=== PATIENT | female | born 1950 | race Hispanic/Latino ===

== ENCOUNTER 2018-04-07 18:39 | Inpatient (IN) | payer MEDICARE ==
[2018-04-07 18:39] VITALS: BMI 19.8
[2018-04-07] MEDS ORDERED: Sodium Chloride 0.9% 1,000 ML IV ONE (21:32)
--- NOTE | 2018-04-07 21:32 | C.PDOC ---
History Of Present Illness 67 year old female with PMHx of lung CA presents to the ED c/o decreased appetite that has been worsening for the past 4 days. Patient states she did not had a bowel movement for the last 3 days. Patient has been feeling weak, freque nt falls over the last week. Patient denies fever, chills, CP, SOB, nausea, vomit, diarrhea, headache, dizziness. Time Seen by Provider: 04/07/18 21:31 Chief Complaint (Nursing): Medical Clearance History Per: Patient History/Exam Limitations: no limitations Onset/Duration Of Symptoms: Days Current Symptoms Are (Timing): Still Present Severity: Moderate Pain Scale Rating Of: 4 Reports Recently: Seen In ED, Treated By A Physician Recent travel outside of the [place]: No Additional History Per: Family Past Medical History Reviewed: Historical Data, Nursing Documentation, Vital Signs Vital Signs: Last Vital Signs Temp 100.1 F H 04/07/18 19:25 Pulse 116 H 04/07/18 19:25 Resp 20 04/07/18 19:25 BP 121/72 04/07/18 19:25 Pulse Ox 95 04/07/18 19:25 - Medical History PMH: Anxiety, Bipolar Disorder, Hyperthyroidism Denies: Chronic Kidney Disease Other PMH: Lung CA Surgical History: No Surg Hx - [facility] Procedures CATARAC PHACOEMULS/ASPIR (09/27/12) DESTRUCT EXT EAR LES NEC (02/17/00) INSERT LENS AT CATAR EXT (09/27/12) Family History: States: Unknown Family Hx - Social History Hx Alcohol Use: No Hx Substance Use: No Review Of Systems Constitutional: Positive for: Weakness. Negative for: Fever, Chills Eyes: Negative for: Redness ENT: Negative for: Throat Pain Cardiovascular: Negative for: Chest Pain Respiratory: Negative for: Cough, Shortness of Breath Gastrointestinal: Negative for: Nausea, Vomiting, Abdominal Pain Musculoskeletal: Negative for: Back Pain Skin: Negative for: Rash Neurological: Negative for: Weakness, Numbness Psych: Negative for: Anxiety Physical Exam - Physical Exam Appears: Non-toxic, Other (cachectic looking) Skin: Warm, Dry, Other (poor turgor) Head: Normacephalic Eye(s): bilateral: Normal Inspection Oral Mucosa: Dry Neck: Supple Chest: Symmetrical Cardiovascular: Rhythm Regular Respiratory: Decreased Breath Sounds, No Rales, Rhonchi, No Wheezing Gastrointestinal/Abdominal: Soft, No Tenderness, No Distention, No Guarding, No Rebound Back: Normal Inspection Extremity: No Tenderness Extremity: Bilateral: Atraumatic, Normal Color And Temperature, Normal ROM Pulses: Left Dorsalis Pedis: Normal, Right Dorsalis Pedis: Normal Neurological/Psych: Oriented x3 Gait: With Assistance ED Course And Treatment - Laboratory Results Result Diagrams: 04/07/18 21:35 04/07/18 21:35 ECG: Interpreted By Me, Viewed By Me ECG Rhythm: Nonspecific Changes O2 Sat by Pulse Oximetry: 95 (ON RA) Pulse Ox Interpretation: Normal - Radiology CXR: Interpreted by Me, Viewed By Me CXR Interpretation: Yes: Other (left lung mass). No: Infiltrates, Fracture, Cardiomegaly - CT Scan/US CT head Other Rad Studies (CT/US): Read By Radiologist, Radiology Report Reviewed CT/US Interpretation: EXAM: CT Head without Intravenous Contrast. CLINICAL HIS TORY: Unsteady gate, falls, hx of lung ca. TECHNIQUE: Axial computed tomography images of the head/brain without intravenous contrast. 0.00 mGy-cm. COMPARISON: None provided. FINDINGS: BRAIN. Chronic periventricular and subcortical microvascular disease is seen. VENTRICLES: There is generalized parenchymal atrophy noted as demonstrated by symmetrical dilatation of ventricles and sulci. ORBITS: The orbits are unremarkable. SINUSES AND MASTOIDS: The paranasal sinuses and mastoid air cells are clear. BONES: No fracture. SOFT TISSUES: Unremarkable. MISCELLANEOUS: No acute intracranial pathology. IMPRESSION: 1. There is generalized parenchymal atrophy noted as demonstrated by symmetrical dilatation of ventricles and sulci. 2. Chronic periventricular and subcortical microvascular disease is seen. 3. No acute intracranial pathology. . Electronically signed on Apr 07, 2018 11:02:46 PM EST by: Uriel Harding M.D., NISHANT Certified By ABR & CBCCT. Fellowship Trained MRI an d CT Specialist Progress Note: Plan: - CT head. - Labs. - CXR. - IV fluids. - UA. pt has known about the lung ca and chose to be treated. family is aware Disposition Discussed With : Amos Pendleton Comment: accepted the pt on his service and took over the care at 10:39 PM Doctor Will See Patient In The: Hospital Counseled Patient/Family Regarding: Studies Performed, Diagnosis - Disposition Disposition: HOSPITALIZED Disposition Time: 21:32 Condition: GUARDED - Clinical Impression Clinical Impression: Fall, Dehydration, Lung cancer - Scribe Statement The provider has reviewed the documentation as recorded by the Scribe Stevan Iglesias All medical record entries made by the Scribe were at my direction and personally dictated by me. I have reviewed the chart and agree that the record accurately reflects my personal performance of the history, physical exam, medical decision making, and the department course for this patient. I have also personally directed, reviewed, and agree with the discharge instructions and disposition.
[2018-04-07 21:44] LABS: BASO % 0.1 % (0.0-2.0); HEMOGLOBIN 11.5 g/dL (11.0-16.0); LYMPH # 0.2 K/uL (1.0-4.3); LYMPH % 1.6 % (20.0-40.0); MEAN CORPUSCULAR HEMOGLOBIN 29.4 pg (27.0-31.0); MEAN CORPUSCULAR HGB CONC 32.9 g/dL (33.0-37.0); MEAN PLATELET VOLUME 7.8 fL (7.2-11.7); NEUT # 10.2 K/uL (1.8-7.0); NEUT % 89.3 % (50.0-75.0); NRBC % 0.1 % (0.0-2.0); PLATELET COUNT 230 K/uL (130-400)
[2018-04-07 21:48] LABS: WHITE BLOOD COUNT 11.4 K/uL (4.8-10.8)
[2018-04-07 21:49] LABS: MEAN CELL VOLUME 89.4 fL (81.0-99.0)
[2018-04-07 21:53] LABS: INR 1.4
[2018-04-07 21:57] LABS: ALB/GLOB RATIO 1.1 (1.0-2.1); ALBUMIN 3.5 g/dL (3.5-5.0); CALCIUM 10.2 mg/dl (8.6-10.4)
[2018-04-07 22:31] LABS: ANISOCYTOSIS SLIGHT; BANDS 1 % (0-2); HYPOCHROMIC SLIGHT; LYMPHOCYTE 4 % (20-40); MONOCYTE 6 % (0-10); NEUTROPHIL 89 % (50-75); PLATELET ESTIMATE NORMAL (NORMAL); POIKILOCYTOSIS SLIGHT; TOTAL CELLS COUNTED 100
[2018-04-07] MEDS ORDERED: Dextrose 5%/0.45% NS 1,000 ML IV SCH (22:45)
[2018-04-07] MEDS ORDERED: Dextrose 5%/0.9% NS 1,000 ML IV ONE (22:52)
[2018-04-07] MEDS ORDERED: Potassium Chloride 20 mEq/15 ml LIQ UD PO STA (23:20)
[2018-04-07] MEDS ORDERED: Potassium Chloride 20 mEq ER Tab PO ONE (23:31)
--- NOTE | 2018-04-08 07:00 | HP ---
HISTORY OF PRESENT ILLNESS: This is a 67-year-old female who was brought to the office with history of confusion, frequent falls, not eating well, and was brought by family friend. She is known to have CA of the lung on the right side. She has been seen and followed up by the Dr. May, however, she had refused to do any further workup and did not want any treatment to be done regarding that. She has also hyperthyroidism. She has a history of depression under the care of Dr. Esteban. MEDICATIONS: At home include lithium carbonate 300 mg twice a day, methimazole 5 mg one a day. Medications at times include Phenergan with Codeine for cough, Protonix, and Proventil inhaler. ALLERGIES: DENIED. FAMILY HISTORY: Negative for premature coronary artery disease. PAST MEDICAL HISTORY: History of depression. Hyperthyroidism being followed with Dr. Shilpa Gutierrez. CA of lung, Dr. Larson had evaluated her. Also was seen by Dr. May. PERSONAL HISTORY: No EtOH abuse. No exercise. She is not . Heavy smoker, smokes more than pack a day for past many years close to 2 packs per day. REVIEW OF SYSTEMS: Generalized weakness is noted, frequent falls. No visual disturbances. No hearing loss. No throat irritation. No hemoptysis currently, but she has had a history of hemoptysis in the past. Chest pains more when she coughs. MUSCULOSKELETAL: Positive for generalized weakness. No joint pains. PSYCHIATRIC: Depression. GASTROINTESTINAL: Occasional abdominal pain, reflux. GENITOURINARY: Negative for hematuria or frequency. NEUROLOGICAL: Frequent falls, questionable syncope. PHYSICAL EXAMINATION: GENERAL: Shows elderly white female who is conscious, alert, and appears depressed with the decreased skin turgor. VITAL SIGNS: Blood pressure is 108/70, heart rate of 88, respiratory rate of 20, temperature of 97.8. She is 5 feet and weighs about 90 pounds. HEENT: Head: Normocephalic. Eyes: No pallor and no icterus. Mouth: No exudates. LUNGS: Decreased air entry on the right mid and lower lobe. HEART: PMI is normal. S1 and S2 is normal. No definite gallops. Soft mid systolic murmur in the mitral area grade 2/6. ABDOMEN: Soft. EXTREMITIES: No cyanosis, clubbing or edema. Distal pulses are intact. MUSCULOSKELETAL: No edema. NEUROLOGICAL: No focal sign. LABORATORY DATA: BUN is 33. Chest x-ray showed mild middle and lower lobe pneumonia mass. ASSESSMENT: A 67-year-old female with a history of depression, hyperthyroidism, carcinoma of the lung has presented with dehydration, confusion, and frequent falls. PLAN: To hydrate her. Pulmonary followup, Neuro followup. CT of the head. Thyroid functions. Psych followup. Amos Pendleton MD
--- NOTE | 2018-04-08 08:44 | RAD ---
HISTORY: lung ca COMPARISON: Chest CT without contrast performed 08/24/17, chest x-ray performed 08/16/17 TECHNIQUE: Chest, one view. FINDINGS: LUNGS: Ill-defined opacities re-identified within the left mid to lower medial lung zone prominently along the left heart border. Additional patchy opacity noted within the right hilar/infrahilar region. Small left pleural effusion. Biapical pleural thickening. No definite pneumothorax. Please note that chest x-ray has limited sensitivity for the detection of pulmonary masses. CARDIOVASCULAR: Cardiomegaly. No significant atherosclerotic calcification present. OSSEOUS STRUCTURES: Degenerative changes. VISUALIZED UPPER ABDOMEN: Unremarkable. OTHER FINDINGS: None. IMPRESSION: Persistent ill-defined opacity along the left mid to lower lung zone predominantly along the left heart border. Patchy opacities within the right hilar/infrahilar region. Small pleural effusion. Cardiomegaly.
[2018-04-08 09:38] LABS: T4 4.69 ug/dL (5.5-11.0)
[2018-04-08 09:55] LABS: T3 0.732 nmol/L (1.49-2.60)
[2018-04-08] MEDS: Enoxaparin 40 mg Syringe SC SCH (10:05)
[2018-04-08] MEDS: methIMAzole 5 MG TAB PO SCH (10:05)
[2018-04-08] MEDS: Dextrose 5%/0.9% NS 1,000 ML IV SCH ×2 (10:06→18:45)
--- NOTE | 2018-04-08 10:47 | CT ---
Date of service: 04/07/2018 PROCEDURE: CT HEAD WITHOUT CONTRAST. HISTORY: falls, hx of lung ca COMPARISON: None available. TECHNIQUE: Axial computed tomography images were obtained through the head/brain without intravenous contrast. Radiation dose: Total exam DLP = 1604.69 mGy-cm. This CT exam was performed using one or more of the following dose reduction techniques: Automated exposure control, adjustment of the mA and/or kV according to patient size, and/or use of iterative reconstruction technique. FINDINGS: HEMORRHAGE: No intracranial hemorrhage. BRAIN: Diffuse atrophy with prominence of the ventricles and sulci noted. No mass effect or edema. Intracranial atherosclerosis. Mild scattered white matter hypodensities, which are nonspecific, but often seen with chronic microvascular ischemic disease. Please note that MRI with diffusion imaging is more sensitive in the detection of acute ischemic event. VENTRICLES: No hydrocephalus. CALVARIUM: Unremarkable. PARANASAL SINUSES: Unremarkable as visualized. No significant inflammatory changes. MASTOID AIR CELLS: Unremarkable as visualized. No inflammatory changes. OTHER FINDINGS: None. IMPRESSION: Nonspecific white matter changes. Generalized atrophy. Preliminary impression was provided by [employer].
--- NOTE | 2018-04-08 15:18 | CP.PCM.PN ---
Subjective - Date & Time of Evaluation Date of Evaluation: 04/08/18 Time of Evaluation: 15:16 - Subjective Subjective: weak.ct head neg. Objective - Vital Signs/Intake and Output Vital Signs (last 24 hours): Temp Pulse Resp BP Pulse Ox 98.4 F 100 H 20 101/52 L 96 04/08/18 07:55 04/08/18 07:55 04/08/18 07:55 04/08/18 07:55 04/08/18 07:55 Intake and Output: 04/08/18 04/08/18 06:59 18:59 Intake Total 400 Balance 400 - Medications Medications: Current Medications Acetaminophen (Tylenol 325mg Tab) 650 mg PO Q6 PRN PRN Reason: Pain, moderate (4-7) Enoxaparin Sodium (Lovenox) 40 mg SC DAILY [facility] Last Admin: 04/08/18 10:05 Dose: 40 mg Dextrose/Sodium Chloride (Dextrose 5%/0.9% Ns 1000 Ml) 1,000 mls @ 100 mls/hr IV .Q10H [facility] Last Admin: 04/08/18 10:06 Dose: 100 mls/hr [place] Carbonate ([place] Carbonate 300mg) 300 mg PO BID [facility] Last Admin: 04/08/18 10:05 Dose: 300 mg Lorazepam (Ativan) 0.5 mg PO BID [facility] Last Admin: 04/08/18 10:05 Dose: 0.5 mg Methimazole (Tapazole) 5 mg PO DAILY [facility] Last Admin: 04/08/18 10:05 Dose: 5 mg - Labs Labs: 04/07/18 21:35 04/07/18 21:35 PT 15.0 SECONDS (9.7-12.2) H 04/07/18 21:35 INR 1.4 04/07/18 21:35 APTT 30 SECONDS (21-34) 04/07/18 21:35 - Constitutional Appears: No Acute Distress, Chronically Ill - Head Exam Head Exam: NORMOCEPHALIC - Eye Exam Eye Exam: Normal appearance - Neck Exam Neck Exam: Normal Inspection - Respiratory Exam Respiratory Exam: Decreased Breath Sounds - Cardiovascular Exam Cardiovascular Exam: REGULAR RHYTHM - GI/Abdominal Exam GI & Abdominal Exam: Soft - Extremities Exam Extremities Exam: absent: Pedal Edema - Neurological Exam Neurological Exam: Alert, Oriented x3 Assessment and Plan - Assessment and Plan (Free Text) Plan: dehtdration.ca lung.needsf/u dr sanchez.psych f/u.
--- NOTE | 2018-04-08 16:42 | CP.PCM.CON ---
History of Present Illness - History of Present Illness History of Present Illness: Reason for consultation: History of lung CA 67-year-old female with history of lung CA presented to emergency room with poor appetite, weakness and lethargy for the past few days. CAT scan of the head in the emergency room showed no metastatic lesion. Denies fever chills, denies chest pain, denies shortness of breath. Review of Systems - Review of Systems Systems not reviewed;Unavailable: Uncooperative Past Patient History - Past Medical History & Family History Past Medical History?: Yes - Past Social History Smoking Status: Current Some Days Smoker - CARDIAC Hx Cardiac Disorders: No - PULMONARY Hx Respiratory Disorders: Yes (lung mass) - NEUROLOGICAL Hx Neurological Disorder: No - HEENT Hx HEENT Problems: Yes (graves disease) Other/Comment: sjogrens disease lack of salvia and tears - RENAL Hx Chronic Kidney Disease: No - ENDOCRINE/METABOLIC Hx Hyperthyroidism: Yes - HEMATOLOGICAL/ONCOLOGICAL Hx Blood Disorders: No - INTEGUMENTARY Hx Dermatological Problems: No - MUSCULOSKELETAL/RHEUMATOLOGICAL Hx Falls: Yes - GASTROINTESTINAL Hx Gastrointestinal Disorders: No - GENITOURINARY/GYNECOLOGICAL Hx Genitourinary Disorders: Yes (ovarian cysts) - PSYCHIATRIC Hx Substance Use: No - SURGICAL HISTORY Hx Surgeries: Yes Other/Comment: laparoscopic ovarian cyst removal right ovary - ANESTHESIA Hx Anesthesia: Yes Hx Anesthesia Reactions: Yes (memory loss) Hx Malignant Hyperthermia: No Meds Allergies/Adverse Reactions: Allergies Allergy/AdvReac Type Severity Reaction Status Date / Time No Known Allergies Allergy Verified 04/07/18 19:38 - Medications Medications: Current Medications Acetaminophen (Tylenol 325mg Tab) 650 mg PO Q6 PRN PRN Reason: Pain, moderate (4-7) Enoxaparin Sodium (Lovenox) 40 mg SC DAILY [facility] Last Admin: 04/08/18 10:05 Dose: 40 mg Dextrose/Sodium Chloride (Dextrose 5%/0.9% Ns 1000 Ml) 1,000 mls @ 100 mls/hr IV .Q10H [facility] Last Admin: 04/08/18 10:06 Dose: 100 mls/hr [place] Carbonate ([place] Carbonate 300mg) 300 mg PO BID [facility] Last Admin: 04/08/18 10:05 Dose: 300 mg Lorazepam (Ativan) 0.5 mg PO BID [facility] Last Admin: 04/08/18 10:05 Dose: 0.5 mg Methimazole (Tapazole) 5 mg PO DAILY [facility] Last Admin: 04/08/18 10:05 Dose: 5 mg Physical Exam - Head Exam Head Exam: ATRAUMATIC, NORMOCEPHALIC - ENT Exam ENT Exam: Mucous Membranes Moist - Neck Exam Neck exam: Positive for: Normal Inspection - Respiratory Exam Respiratory Exam: Clear to Auscultation Bilateral - Cardiovascular Exam Cardiovascular Exam: REGULAR RHYTHM - GI/Abdominal Exam GI & Abdominal Exam: Normal Bowel Sounds Results - Vital Signs Recent Vital Signs: Last Vital Signs Temp 98.4 F 04/08/18 07:55 Pulse 100 H 04/08/18 07:55 Resp 20 04/08/18 07:55 BP 101/52 L 04/08/18 07:55 Pulse Ox 96 04/08/18 07:55 - Labs Result Diagrams: 04/09/18 11:17 04/09/18 11:17 Labs: Laboratory Results - last 24 hr 04/07/18 04/07/18 04/07/18 21:35 21:35 21:35 WBC 11.4 H D RBC 3.90 Hgb 11.5 Hct 34.8 MCV 89.4 D MCH 29.4 MCHC 32.9 L RDW 14.0 Plt Count 230 MPV 7.8 Neut % (Auto) 89.3 H Lymph % (Auto) 1.6 L [place] % (Auto) 9.0 Eos % (Auto) 0.0 Baso % (Auto) 0.1 Neut # (Auto) 10.2 H Lymph # (Auto) 0.2 L [place] # (Auto) 1.0 H Eos # (Auto) 0.0 Baso # (Auto) 0.0 Neutrophils % (Manual) 89 H Band Neutrophils % 1 Lymphocytes % (Manual) 4 L Monocytes % (Manual) 6 Platelet Estimate Normal Hypochromasia (manual) Slight Poikilocytosis (manual Slight Anisocytosis (manual) Slight PT 15.0 H INR 1.4 APTT 30 Sodium 135 Potassium 3.2 L Chloride 99 Carbon Dioxide 29 Anion Gap 10 BUN 33 H Creatinine 1.2 Est GFR ( Amer) 54 Est GFR (Non-Af Amer) 45 Random Glucose 112 H Calcium 10.2 Total Bilirubin 0.6 AST 18 ALT 17 Alkaline Phosphatase 121 Total Protein 6.6 Albumin 3.5 Globulin 3.1 Albumin/Globulin Ratio 1.1 Thyroxine (T4) Total T3 TSH 3rd Generation 04/08/18 08:55 WBC RBC Hgb Hct MCV MCH MCHC RDW Plt Count MPV Neut % (Auto) Lymph % (Auto) [place] % (Auto) Eos % (Auto) Baso % (Auto) Neut # (Auto) Lymph # (Auto) [place] # (Auto) Eos # (Auto) Baso # (Auto) Neutrophils % (Manual) Band Neutrophils % Lymphocytes % (Manual) Monocytes % (Manual) Platelet Estimate Hypochromasia (manual) Poikilocytosis (manual Anisocytosis (manual) PT INR APTT Sodium Potassium Chloride Carbon Dioxide Anion Gap BUN Creatinine Est GFR ( Amer) Est GFR (Non-Af Amer) Random Glucose Calcium Total Bilirubin AST ALT Alkaline Phosphatase Total Protein Albumin Globulin Albumin/Globulin Ratio Thyroxine (T4) 4.69 L Total T3 0.732 L TSH 3rd Generation 0.84 Assessment & Plan (1) Lung infiltrate Status: Acute Comment: Patchy opacity in the right hilar and infrahilar region/rule out pneumonia. Start antibiotics. Continue present treatment. Follow-up culture and sensitivity. CAT scan of the chest (2) Lung cancer Status: Acute
[2018-04-08] MEDS: Azithromycin 500 MG in Sodium Chloride 0.9% 250 ML IVPB SCH (18:30)
[2018-04-09] MEDS: Dextrose 5%/0.9% NS 1,000 ML IV SCH (04:02)
[2018-04-09] MEDS: methIMAzole 5 MG TAB PO SCH (10:12)
[2018-04-09] MEDS: Enoxaparin 40 mg Syringe SC SCH (10:13)
[2018-04-09 11:23] LABS: BASO % 0.2 % (0.0-2.0); HEMOGLOBIN 10.8 g/dL (11.0-16.0); LYMPH # 0.2 K/uL (1.0-4.3); LYMPH % 0.9 % (20.0-40.0); MEAN CELL VOLUME 91.3 fL (81.0-99.0); MEAN CORPUSCULAR HEMOGLOBIN 29.8 pg (27.0-31.0); MEAN CORPUSCULAR HGB CONC 32.6 g/dL (33.0-37.0); MEAN PLATELET VOLUME 7.2 fL (7.2-11.7); MONO # 0.8 K/uL (0.0-0.8); MONO % 4.5 % (0.0-10.0); NEUT # 16.6 K/uL (1.8-7.0); NEUT % 94.4 % (50.0-75.0); PLATELET COUNT 276 K/uL (130-400); RBC 3.62 Mil/uL (3.80-5.20); RED CELL DISTRIBUTION WIDTH 14.3 % (11.5-14.5)
[2018-04-09 11:24] LABS: WHITE BLOOD COUNT 17.6 K/uL (4.8-10.8)
[2018-04-09 11:36] LABS: ALBUMIN 2.9 g/dL (3.5-5.0); ALT/SGPT 18 U/L (9-52); AST/SGOT 14 U/L (14-36); BLOOD UREA NITROGEN 24 mg/dL (7-17); CALCIUM 10.2 mg/dl (8.6-10.4); GFR NON-AFRICAN AMERICAN > 60
[2018-04-09 11:42] LABS: ANISOCYTOSIS SLIGHT; BANDS 4 % (0-2); LYMPHOCYTE 1 % (20-40); MONOCYTE 4 % (0-10); NEUTROPHIL 91 % (50-75); PLATELET ESTIMATE NORMAL (NORMAL); TOTAL CELLS COUNTED 100
[2018-04-09 11:44] LABS: TOXIC GRANULATION PRESENT
--- NOTE | 2018-04-09 15:40 | CP.PCM.PN ---
Subjective - Date & Time of Evaluation Date of Evaluation: 04/09/18 Time of Evaluation: 13:00 - Subjective Subjective: Patient seen and examined Lethargic Poor appetite Afebrile Discussed at length with legal guardian Continue antibiotics CAT scan of chest Continue lithium Objective - Vital Signs/Intake and Output Vital Signs (last 24 hours): Temp Pulse Resp BP Pulse Ox 98.6 F 89 20 110/73 95 04/09/18 08:00 04/09/18 12:11 04/09/18 08:00 04/09/18 08:00 04/09/18 12:11 Intake and Output: 04/09/18 04/09/18 06:59 18:59 Intake Total 1130 Balance 1130 - Medications Medications: Current Medications Acetaminophen (Tylenol 325mg Tab) 650 mg PO Q6 PRN PRN Reason: Pain, moderate (4-7) Enoxaparin Sodium (Lovenox) 40 mg SC DAILY [facility] Last Admin: 04/09/18 10:13 Dose: 40 mg Dextrose/Sodium Chloride (Dextrose 5%/0.9% Ns 1000 Ml) 1,000 mls @ 100 mls/hr IV .Q10H [facility] Last Admin: 04/09/18 04:02 Dose: 100 mls/hr Azithromycin 500 mg/ Sodium (Chloride) 250 mls @ 250 mls/hr IVPB Q24H [facility]; Protocol Last Admin: 04/08/18 18:30 Dose: 250 mls/hr Ceftriaxone Sodium 1 gm/ (Sodium Chloride) 100 mls @ 100 mls/hr IVPB Q24H [facility]; Protocol Last Admin: 04/08/18 19:11 Dose: 100 mls/hr [place] Carbonate ([place] Carbonate 300mg) 300 mg PO BID [facility] Last Admin: 04/09/18 10:12 Dose: 300 mg Lorazepam (Ativan) 0.5 mg PO BID [facility] Last Admin: 04/09/18 10:12 Dose: 0.5 mg Methimazole (Tapazole) 5 mg PO DAILY [facility] Last Admin: 04/09/18 10:12 Dose: 5 mg - Labs Labs: 04/09/18 11:17 04/09/18 11:17 PT 15.0 SECONDS (9.7-12.2) H 04/07/18 21:35 INR 1.4 04/07/18 21:35 APTT 30 SECONDS (21-34) 04/07/18 21:35 Assessment and Plan (1) Lung infiltrate Status: Acute (2) Lung cancer Status: Acute
[2018-04-09] MEDS: Azithromycin 500 MG in Sodium Chloride 0.9% 250 ML IVPB SCH (17:17)
[2018-04-10] MEDS: Dextrose 5%/0.9% NS 1,000 ML IV SCH ×5 (00:20→21:15)
[2018-04-10 08:03] LABS: BASO % 0.1 % (0.0-2.0); LYMPH # 0.3 K/uL (1.0-4.3); LYMPH % 1.2 % (20.0-40.0); MEAN CELL VOLUME 92.1 fL (81.0-99.0); MEAN CORPUSCULAR HEMOGLOBIN 29.4 pg (27.0-31.0); MONO % 4.9 % (0.0-10.0); NEUT # 19.6 K/uL (1.8-7.0); NEUT % 93.8 % (50.0-75.0); PLATELET COUNT 348 K/uL (130-400); RBC 3.72 Mil/uL (3.80-5.20); RED CELL DISTRIBUTION WIDTH 14.7 % (11.5-14.5)
[2018-04-10 08:17] LABS: ALT/SGPT 22 U/L (9-52); AST/SGOT 12 U/L (14-36); BLOOD UREA NITROGEN 23 mg/dL (7-17); GFR NON-AFRICAN AMERICAN > 60
[2018-04-10 09:11] LABS: ANISOCYTOSIS SLIGHT; BANDS 2 % (0-2); HYPOCHROMIC SLIGHT; LYMPHOCYTE 1 % (20-40); MONOCYTE 4 % (0-10); NEUTROPHIL 92 % (50-75); PLATELET ESTIMATE NORMAL (NORMAL); POIKILOCYTOSIS SLIGHT; REACTIVE LYMPHOCYTES 1 % (0-0); TOTAL CELLS COUNTED 100
[2018-04-10] MEDS: methIMAzole 5 MG TAB PO SCH (09:53)
[2018-04-10] MEDS: Enoxaparin 40 mg Syringe SC SCH (10:03)
--- NOTE | 2018-04-10 11:26 | CT ---
Date of service: 04/10/2018 PROCEDURE: CT Chest without contrast HISTORY: h/o lung ca COMPARISON: None available. TECHNIQUE: Contiguous axial images were obtained through the chest without intravenous contrast enhancement. Sagittal and coronal reconstructions were performed. Radiation dose: Total exam DLP = 242.01 mGy-cm. This CT exam was performed using one or more of the following dose reduction techniques: Automated exposure control, adjustment of the mA and/or kV according to patient size, and/or use of iterative reconstruction technique. FINDINGS: LUNGS: Respiratory motion related artifacts limit the interpretation. Fibrotic changes are reiterated at the right apex with the aerated left lung clear. However, there is complete opacification of the left lower lobe likely a function of postobstructive atelectasis at the left hilum, either intrinsic or extrinsic. A defined mass is not clearly identified in this noncontrast examination. MEDIASTINUM: Trace calcific atherosclerotic changes are seen related to the thoracic aorta. No thoracic aortic aneurysm. Normal sized heart. Main pulmonary artery unremarkable. No vascular congestion. Possibility of left hilar adenopathy is not excluded though the remainder the mediastinum appears unremarkable as imaged in this unenhanced exam. PLEURA: Thoracic inlet again reflects prominent right thyroid lobe. A large left pleural effusion is identified, likely increased in volume which may exert some element of compression atelectasis at the left lower lobe (felt to primarily be atelectatic from postobstructive atelectasis etiology). No pneumothorax or right pleural effusion though left pleural effusion appears increased in the interval. BONES: Artifactual simulation of T8 compression fracture due to patient motion. Anterior sternum is artifact at the same level. No destructive bony lesion appreciable throughout. UPPER ABDOMEN: Grossly unremarkable. OTHER FINDINGS: None. IMPRESSION: Increased opacity at the left hemithorax is appreciated occupying the left lower lobe and pleural space suggesting interval progression of disease though no midline shift is appreciated at this time. Post structure atelectasis appears throughout the left lower lobe which is either intrinsic or extrinsic at the left mainstem bronchus, as per above.
[2018-04-10] MEDS ORDERED: Potassium Chloride 20 mEq/15 ml LIQ UD PO ONE (11:45)
--- NOTE | 2018-04-10 13:59 | CP.PCM.PN ---
Subjective - Date & Time of Evaluation Date of Evaluation: 04/10/18 Time of Evaluation: 13:56 - Subjective Subjective: very agitated,diss with pediatric care coordinator.request hospice. Objective - Vital Signs/Intake and Output Vital Signs (last 24 hours): Temp Pulse Resp BP Pulse Ox 98.6 F 104 H 20 100/55 L 97 04/10/18 08:00 04/10/18 08:00 04/10/18 08:00 04/10/18 08:00 04/10/18 08:00 Intake and Output: 04/10/18 04/10/18 06:59 18:59 Intake Total 1050 920 Balance 1050 920 - Medications Medications: Current Medications Acetaminophen (Tylenol 325mg Tab) 650 mg PO Q6 PRN PRN Reason: Pain, moderate (4-7) Enoxaparin Sodium (Lovenox) 40 mg SC DAILY [facility] Last Admin: 04/10/18 10:03 Dose: 40 mg Haloperidol (Haldol) 5 mg PO Q6H PRN PRN Reason: Agitation Last Admin: 04/10/18 09:53 Dose: 5 mg Dextrose/Sodium Chloride (Dextrose 5%/0.9% Ns 1000 Ml) 1,000 mls @ 100 mls/hr IV .Q10H [facility] Last Admin: 04/10/18 13:36 Dose: Not Given Azithromycin 500 mg/ Sodium (Chloride) 250 mls @ 250 mls/hr IVPB Q24H [facility]; Protocol Last Admin: 04/09/18 17:17 Dose: 250 mls/hr [place] Carbonate ([place] Carbonate 300mg) 300 mg PO BID [facility] Last Admin: 04/10/18 09:53 Dose: 300 mg Lorazepam (Ativan) 1 mg PO Q6H PRN PRN Reason: Anxiety Last Admin: 04/10/18 13:15 Dose: 1 mg Methimazole (Tapazole) 5 mg PO DAILY [facility] Last Admin: 04/10/18 09:53 Dose: 5 mg - Labs Labs: 04/10/18 07:53 04/10/18 07:53 PT 15.0 SECONDS (9.7-12.2) H 04/07/18 21:35 INR 1.4 04/07/18 21:35 APTT 30 SECONDS (21-34) 04/07/18 21:35 - Constitutional Appears: Agitated - Eye Exam Eye Exam: Normal appearance - Neck Exam Neck Exam: Normal Inspection - Respiratory Exam Respiratory Exam: Clear to Ausculation Bilateral - Cardiovascular Exam Cardiovascular Exam: REGULAR RHYTHM - Extremities Exam Extremities Exam: absent: Pedal Edema Assessment and Plan - Assessment and Plan (Free Text) Plan: ca lung.k is low.needs hospice.diss with caregiver who has power.diss with psych .
[2018-04-10] MEDS ORDERED: Potassium Chloride 20 mEq/15 ml LIQ UD PO STA (14:02)
--- NOTE | 2018-04-10 14:23 | CP.PCM.PN ---
<Young Gillespie - Last Filed: 04/10/18 14:15> Subjective - Date & Time of Evaluation Date of Evaluation: 04/10/18 Time of Evaluation: 12:00 - Subjective Subjective: Progress note for Pulmonology: Patient was seen and examined this morning at bedside. She is awake and alert but not oriented to place or time. Appears agitated and writhing around in bed. Non combative. Patient does respond to her name when her close friend calls out to her by the bedside. Upon further discussion, patient's friend (and P.O.A) states that today she appears cognitively worse then the past 2 days. She reports that patient has been told in the past that she had a "bad reaction" to haldol and that she should not take that medication. Friend also states that the patient has discussed not wanting any aggressive interventions to be done on her. Discussed option of thoracentesis but patient's POA refused. A&P 1. Pneumonia - CT chest reviewed, reveals complete opacification of the left lower lobe of the lung, likely attributed to post-obstructive atelectasis. This appears to be increased since her prior imaging. Currently no defined mass was clearly visualized. - WBC increased to 21.0 today (from 17.0) - Plan to switch antibiotics to Zosyn - Option for thoracentesis was discussed at length with patient's close friend. At this time, they do not want to perform diagnostic thoracentesis, as the patient has discussed her wish not to perform any aggressive interventions. 2. Acute delirium - Labs reviewed. Na+ increased to 157, K+ decreased to 3.2. Plan to continue IV fluids and replace K+ - Patient received Ativan 1 mg overnight as well as Haldol 5mg this morning for worsening agitation. Discussed with Dr. Thao that patient became more agitated after receiving medications and worsened her confusion. Psych will re-eval today and make new medication recommendations. 3. Lung Adenocarcinoma - Ongoing - Pending evaluation for hospice - POA states that patient does not want any heroic measures. Patient is pending evaluation by palliative care for end of life care/goals. Objective - Vital Signs/Intake and Output Vital Signs (last 24 hours): Temp Pulse Resp BP Pulse Ox 98.6 F 104 H 20 100/55 L 97 04/10/18 08:00 04/10/18 08:00 04/10/18 08:00 04/10/18 08:00 04/10/18 08:00 Intake and Output: 04/10/18 04/10/18 06:59 18:59 Intake Total 1050 920 Balance 1050 920 - Medications Medications: Current Medications Acetaminophen (Tylenol 325mg Tab) 650 mg PO Q6 PRN PRN Reason: Pain, moderate (4-7) Enoxaparin Sodium (Lovenox) 40 mg SC DAILY [facility] Last Admin: 04/10/18 10:03 Dose: 40 mg Haloperidol (Haldol) 5 mg PO Q6H PRN PRN Reason: Agitation Last Admin: 04/10/18 09:53 Dose: 5 mg Dextrose/Sodium Chloride (Dextrose 5%/0.9% Ns 1000 Ml) 1,000 mls @ 100 mls/hr IV .Q10H [facility] Last Admin: 04/10/18 13:36 Dose: Not Given Thorofare Carbonate (Thorofare Carbonate 300mg) 300 mg PO BID [facility] Last Admin: 04/10/18 09:53 Dose: 300 mg Lorazepam (Ativan) 1 mg PO Q6H PRN PRN Reason: Anxiety Last Admin: 04/10/18 13:15 Dose: 1 mg Methimazole (Tapazole) 5 mg PO DAILY [facility] Last Admin: 04/10/18 09:53 Dose: 5 mg - Labs Labs: 04/10/18 07:53 04/10/18 07:53 PT 15.0 SECONDS (9.7-12.2) H 04/07/18 21:35 INR 1.4 04/07/18 21:35 APTT 30 SECONDS (21-34) 04/07/18 21:35 Assessment and Plan (1) Lung cancer Status: Acute (2) Lung infiltrate Status: Acute <Wes May S - Last Filed: 04/10/18 18:09> Objective - Vital Signs/Intake and Output Vital Signs (last 24 hours): Temp Pulse Resp BP Pulse Ox 98.8 F 102 H 20 103/64 96 04/10/18 17:15 04/10/18 17:15 04/10/18 17:15 04/10/18 17:15 04/10/18 17:15 Intake and Output: 04/10/18 04/10/18 06:59 18:59 Intake Total 1050 920 Balance 1050 920 - Medications Medications: Current Medications Acetaminophen (Tylenol 325mg Tab) 650 mg PO Q6 PRN PRN Reason: Pain, moderate (4-7) Clonazepam (Klonopin) 0.5 mg PO BID [facility] Enoxaparin Sodium (Lovenox) 40 mg SC DAILY [facility] Last Admin: 04/10/18 10:03 Dose: 40 mg Haloperidol (Haldol) 5 mg PO Q6H PRN PRN Reason: Agitation Last Admin: 04/10/18 09:53 Dose: 5 mg Dextrose/Sodium Chloride (Dextrose 5%/0.9% Ns 1000 Ml) 1,000 mls @ 100 mls/hr IV .Q10H [facility] Last Admin: 04/10/18 13:36 Dose: Not Given Thorofare Carbonate (Thorofare Carbonate 300mg) 300 mg PO BID [facility] Last Admin: 04/10/18 09:53 Dose: 300 mg Lorazepam (Ativan) 0.5 mg PO Q6H PRN PRN Reason: Anxiety Last Admin: 04/10/18 13:20 Dose: 0.5 mg Methimazole (Tapazole) 5 mg PO DAILY [facility] Last Admin: 04/10/18 09:53 Dose: 5 mg Trazodone HCl (Desyrel) 50 mg PO HS [facility] - Labs Labs: 04/10/18 07:53 04/10/18 07:53 PT 15.0 SECONDS (9.7-12.2) H 04/07/18 21:35 INR 1.4 04/07/18 21:35 APTT 30 SECONDS (21-34) 04/07/18 21:35 Assessment and Plan (1) Lung infiltrate Status: Acute (2) Lung cancer Status: Acute Attending/Attestation - Attestation I have personally seen and examined this patient.: Yes I have fully participated in the care of the patient.: Yes I have reviewed all pertinent clinical information, including history, physical exam and plan: Yes Notes (Text): 04/10/18 18:07 Patient seen and examined Patient seen by psychiatry Possible sepsis Continue antibiotics Hospice evaluation
--- NOTE | 2018-04-10 14:44 | PCM.PSYCH ---
Initial Psychiatric Evaluation - Initial Psychiatric Evaluation Chief Complaint (in patient's own words): None She was sedated History of Present Illness and Precipitating Events: Consult was requested by medicine for her agitation Dr. Cardenas saw her but she was confused and did not cooperate Software Team Leader saw today and she was again confused but more sedated. Her legal guardian was with her, Jami, and she provided most of the history. Software Team Leader spoke to her attending dr ramirez She is a 67 y/o WF, single, no child, lives alone. Here for end-stage lung cancer She will move to hospice as she has been refusing treatment and dying. She had been seen by Keara Cain, and "only Chrisney" helped her chronic severe depression, her LG says. However, here she is mostly delirious than depressed. No suicide attempts Not clear about psych admissions She has been stable until last week on klonopin and lithium Medical: Cancer Current Medications: Active Medications Generic Name Dose Route Start Last Admin Trade Name Freq PRN Reason Stop Dose Admin Acetaminophen 650 mg 04/08/18 08:41 Tylenol 325mg Tab PO Q6 PRN Pain, moderate (4-7) Clonazepam 0.5 mg 04/10/18 18:00 Klonopin PO BID MY Enoxaparin Sodium 40 mg 04/08/18 10:00 04/10/18 10:03 Lovenox SC 40 mg DAILY [facility] Administration Haloperidol 5 mg 04/09/18 16:38 04/10/18 09:53 Haldol PO 5 mg Q6H PRN Administration Agitation Dextrose/Sodium Chloride 1,000 mls @ 100 mls/hr 04/08/18 08:45 04/10/18 13:36 Dextrose 5%/0.9% Ns 1000 Ml IV Not Given .Q10H MY Chrisney Carbonate 300 mg 04/08/18 10:00 04/10/18 09:53 Chrisney Carbonate 300mg PO 300 mg BID MY Administration Lorazepam 0.5 mg 04/10/18 15:00 Ativan PO Q6H PRN Anxiety Methimazole 5 mg 04/08/18 10:00 04/10/18 09:53 Tapazole PO 5 mg DAILY MY Administration Trazodone HCl 50 mg 04/10/18 22:00 Desyrel PO HS MY Past Psychiatric History - Past Psychiatric History Previous Treatment History: Intensive Outpatient Pertinent Medical Hx (Current Medical&Sleep Prob, Allergies): Allergies Allergy/AdvReac Type Severity Reaction Status Date / Time No Known Allergies Allergy Verified 04/07/18 19:38 LORazepam [Ativan] 0.5 mg PO BID 10/31/15 Chrisney Carbonate 300 mg PO BID 10/31/15 Methimazole 5 mg PO DAILY 10/31/15 Temazepam 15 mg PO HS 10/31/15 Review of Systems - Review of Systems Systems not reviewed;Unavailable: Altered Mental Status Mental Status Examination - Personal Presentation Personal Presentation: Looks older than stated age - Affect Affect: Flat - Motor Activity Motor Activity: Psychomotor Agitation - Reliability in Providing Information Reliability in Providing Information: Poor, due to cognitve impairment - Speech Speech: Disorganized - Mood Mood: Depressed - Formal Thought Process Formal Thought Process: Other - Cognitive Functions Orientation: Person (disoriented) Sensorium: Lethargic Attention/Concentration: Easily distracted Memory: Recent impaired, as evidence by: Inability to recall events of the day, Remote impaired as evidenced by: Inability to recall sig life events - Strength & Assets Inventory Strength & Assets Inventory: Family support (friend) DSM 5 DX - DSM 5 DSM 5 Diagnosis: Bipolar d/o - depressed (by history) Delirium due to medical issues (pneumonia) - Recommended/Plan of Treatment Treatment Recommendations and Plan of Treatment: prn ativan Klonopin 0.5 BID resumed She is already on Chrisney but level to be checked tomorrow - Hold IF kidney functions impaired Trazodone for insomnia and it helps agitation too Treat underlying condition for delirium Support and 1:1 Hold benzos if she remains confused after the underlying condition improves 33 min
--- NOTE | 2018-04-10 21:39 | CARD ---
APPROVED REPORT Date of service: 04/08/2018 EKG Measurement Heart [id number] <Conclusion> Sinus tachycardia Possible Left atrial enlargement Rightward axis T wave abnormality, consider anterior ischemia Abnormal ECG
[2018-04-11] MEDS: Dextrose 5%/0.9% NS 1,000 ML IV SCH ×2 (04:09→06:33)
[2018-04-11 06:54] LABS: BASO % 0.2 % (0.0-2.0); HEMOGLOBIN 11.2 g/dL (11.0-16.0); LYMPH # 0.3 K/uL (1.0-4.3); LYMPH % 1.6 % (20.0-40.0); MEAN CELL VOLUME 93.9 fL (81.0-99.0); MEAN CORPUSCULAR HEMOGLOBIN 29.3 pg (27.0-31.0); MEAN CORPUSCULAR HGB CONC 31.2 g/dL (33.0-37.0); MEAN PLATELET VOLUME 6.7 fL (7.2-11.7); MONO # 1.1 K/uL (0.0-0.8); MONO % 5.4 % (0.0-10.0); NEUT # 18.8 K/uL (1.8-7.0); NEUT % 92.8 % (50.0-75.0); PLATELET COUNT 312 K/uL (130-400); RBC 3.84 Mil/uL (3.80-5.20); RED CELL DISTRIBUTION WIDTH 15.6 % (11.5-14.5); WHITE BLOOD COUNT 20.3 K/uL (4.8-10.8)
[2018-04-11 07:02] LABS: ALB/GLOB RATIO 0.9 (1.0-2.1); ALBUMIN 2.9 g/dL (3.5-5.0); ALT/SGPT 14 U/L (9-52); AST/SGOT 12 U/L (14-36); BLOOD UREA NITROGEN 21 mg/dL (7-17); CALCIUM 10.9 mg/dl (8.6-10.4); GFR NON-AFRICAN AMERICAN 55
[2018-04-11 08:59] LABS: LYMPHOCYTE 1 % (20-40); MONOCYTE 2 % (0-10); NEUTROPHIL 97 % (50-75); PLATELET ESTIMATE NORMAL (NORMAL); TOTAL CELLS COUNTED 100
[2018-04-11] MEDS: methIMAzole 5 MG TAB PO SCH (10:23)
[2018-04-11] MEDS: Enoxaparin 40 mg Syringe SC SCH (10:23)
--- NOTE | 2018-04-11 11:57 | CP.PCM.CON ---
History of Present Illness - History of Present Illness History of Present Illness: Palliative consult requested by Doctor Keerthi for goals of care discussion Patient is a 67 yo female admitted from home with confusion, decreased appetite and multiple falls at home. 911 called by patient's friend Danny Salomon ( [phone]). Patient has known Hx of lung CA. Per record, patient has refused all management cancer related. On this admission CT chest confirmed lung cancer spreading now to left lobe as well. During this hospital stay patient's condition worsened due to elevated Na of 167, and patient become very confused, lethargic and this morning unresponsive to verbal/ tactile stimuli. Patient is hydrated via IV fluids and PO meds are held off due high risk of aspiration 2nd to lethargy. Palliative care was called to assist with goals of care. PMH: lung cancer, depression, on [place] at home BID Soc. Hx: single, lives alone, friend Ms. Delgado is a POA and decision maker Fam. Hx: unknown Review of Systems - Review of Systems All systems: reviewed and no additional remarkable complaints except Review of Systems: ROS unobtainable from patient due to lethargy. ROS obtained from nursing. per nursing, patient has been lethargic and unable to tolerate PO. Past Patient History - Past Medical History & Family History Past Medical History?: Yes - Past Social History Smoking Status: Current Some Days Smoker - CARDIAC Hx Cardiac Disorders: No - PULMONARY Hx Respiratory Disorders: Yes (lung mass) - NEUROLOGICAL Hx Neurological Disorder: No - HEENT Hx HEENT Problems: Yes (graves disease) Other/Comment: sjogrens disease lack of salvia and tears - RENAL Hx Chronic Kidney Disease: No - ENDOCRINE/METABOLIC Hx Hyperthyroidism: Yes - HEMATOLOGICAL/ONCOLOGICAL Hx Blood Disorders: No - INTEGUMENTARY Hx Dermatological Problems: No - MUSCULOSKELETAL/RHEUMATOLOGICAL Hx Falls: Yes - GASTROINTESTINAL Hx Gastrointestinal Disorders: No - GENITOURINARY/GYNECOLOGICAL Hx Genitourinary Disorders: Yes (ovarian cysts) - PSYCHIATRIC Hx Substance Use: No - SURGICAL HISTORY Hx Surgeries: Yes Other/Comment: laparoscopic ovarian cyst removal right ovary - ANESTHESIA Hx Anesthesia: Yes Hx Anesthesia Reactions: Yes (memory loss) Hx Malignant Hyperthermia: No Meds Allergies/Adverse Reactions: Allergies Allergy/AdvReac Type Severity Reaction Status Date / Time No Known Allergies Allergy Verified 04/07/18 19:38 - Medications Medications: Current Medications Acetaminophen (Tylenol 325mg Tab) 650 mg PO Q6 PRN PRN Reason: Pain, moderate (4-7) Clonazepam (Klonopin) 0.5 mg PO BID [facility] Last Admin: 04/11/18 10:23 Dose: 0.5 mg Enoxaparin Sodium (Lovenox) 40 mg SC DAILY [facility] Last Admin: 04/11/18 10:23 Dose: 40 mg Haloperidol (Haldol) 5 mg PO Q6H PRN PRN Reason: Agitation Last Admin: 04/10/18 09:53 Dose: 5 mg Dextrose (Dextrose 5% In Water 1000 Ml) 1,000 mls @ 100 mls/hr IV .Q10H [facility] Lorazepam (Ativan) 0.5 mg PO Q6H PRN PRN Reason: Anxiety Last Admin: 04/10/18 13:20 Dose: 0.5 mg Methimazole (Tapazole) 5 mg PO DAILY [facility] Last Admin: 04/11/18 10:23 Dose: 5 mg Trazodone HCl (Desyrel) 50 mg PO HS [facility] Last Admin: 04/10/18 21:59 Dose: 50 mg Physical Exam - Constitutional Appears: In Acute Distress, Chronically Ill - Head Exam Head Exam: ATRAUMATIC, NORMAL INSPECTION, NORMOCEPHALIC - Eye Exam Eye Exam: EOMI, Normal appearance, PERRL Pupil Exam: NORMAL ACCOMODATION, PERRL - ENT Exam ENT Exam: Mucous Membranes Dry Additional comments: Moth open, mouth breather, oral mucousa dry - Neck Exam Neck exam: Positive for: Normal Inspection - Respiratory Exam Respiratory Exam: Decreased Breath Sounds, NORMAL BREATHING PATTERN - Cardiovascular Exam Cardiovascular Exam: Tachycardia - GI/Abdominal Exam GI & Abdominal Exam: Normal Bowel Sounds, Soft - Rectal Exam Rectal Exam: Deferred - Extremities Exam Extremities exam: Positive for: normal inspection - Back Exam Back exam: NORMAL INSPECTION - Neurological Exam Neurological exam: Motor Sensory Deficit - Psychiatric Exam Psychiatric exam: Flat Affect - Skin Skin Exam: Dry, Intact, Normal Color, Warm Results - Vital Signs Recent Vital Signs: Last Vital Signs Temp 98.1 F 04/11/18 08:01 Pulse 100 H 04/11/18 08:01 Resp 24 04/11/18 08:01 BP 106/55 L 04/11/18 08:01 Pulse Ox 96 04/11/18 08:01 - Labs Result Diagrams: 04/11/18 06:35 04/11/18 06:35 Labs: Laboratory Results - last 24 hr 04/10/18 04/11/18 04/11/18 16:59 06:35 06:35 WBC 20.3 H RBC 3.84 Hgb 11.2 Hct 36.0 MCV 93.9 MCH 29.3 MCHC 31.2 L RDW 15.6 H Plt Count 312 MPV 6.7 L Neut % (Auto) 92.8 H Lymph % (Auto) 1.6 L [place] % (Auto) 5.4 Eos % (Auto) 0.0 Baso % (Auto) 0.2 Neut # (Auto) 18.8 H Lymph # (Auto) 0.3 L [place] # (Auto) 1.1 H Eos # (Auto) 0.0 Baso # (Auto) 0.0 Neutrophils % (Manual) 97 H Lymphocytes % (Manual) 1 L Monocytes % (Manual) 2 Platelet Estimate Normal RBC Morphology Normal Sodium 167 H* Potassium 3.8 Chloride 133 H Carbon Dioxide 33 H Anion Gap 5 L BUN 21 H Creatinine 1.0 Est GFR ( Amer) > 60 Est GFR (Non-Af Amer) 55 Random Glucose 162 H Calcium 10.9 H Total Bilirubin 0.4 AST 12 L ALT 14 Alkaline Phosphatase 123 Total Protein 6.1 L Albumin 2.9 L Globulin 3.2 Albumin/Globulin Ratio 0.9 L [place] 1.2 04/11/18 06:35 WBC RBC Hgb Hct MCV MCH MCHC RDW Plt Count MPV Neut % (Auto) Lymph % (Auto) [place] % (Auto) Eos % (Auto) Baso % (Auto) Neut # (Auto) Lymph # (Auto) [place] # (Auto) Eos # (Auto) Baso # (Auto) Neutrophils % (Manual) Lymphocytes % (Manual) Monocytes % (Manual) Platelet Estimate RBC Morphology Sodium Potassium Chloride Carbon Dioxide Anion Gap BUN Creatinine Est GFR ( Amer) Est GFR (Non-Af Amer) Random Glucose Calcium Total Bilirubin AST ALT Alkaline Phosphatase Total Protein Albumin Globulin Albumin/Globulin Ratio [place] 1.0 Assessment & Plan - Assessment and Plan (Free Text) Assessment: Palliative consult No Advance directive on chart, PPS 10% I reviewed all medical records, diagnostic studies, examined patient in the bed and discussed goals of care with her POA Patient is lethargic unresponsive to verbal stimuli, diminished response to tactile stimuli. Eyes closed, mouth open, deep breathing. patient is a mouth breather, oral mucousa extremely dry. Skin dry, intact, poor skin turgor. On IV hydration. Unable to take PO due to lethargy. PO meds held off. Breath sounds diminished. No cough noted. o2Sat 96 % RA. Abdomen soft, active bowel sounds, incontinent of bladder and bowel. WBC 20.3, Hb 11.2, Na 167 BP 106/55, HR 100, afebrile Patient seen by Psychiatrist re Depression. Renal consult called re Na level. Patient's friend Ms. Delgado at bed side for family meeting. She claims being close friend of the patient since 7th grade. Ms. Delgado lives about [address] from here and does her best to visit patient daily. I reviewed patient's clinical presentation and elicited Ms. Delgado's understanding and expectations. Ms. Delgado stated, she has been seeing decline in patient's condition and is concerned with poor prognosis. Ms. Delgado was concerned especially with patient's comfort and quality of life in the light of diagnosis of cancer and patient's refusal of medical interventions in the past. Ms. Delgado is aware of poor prognosis and limited life expectancy. She said that she had spoken with patient in the past, when the patient told her not to ever allow any aggressive interventions if it should be suggested. I shared concerns regarding grave prognosis and offered more information about Hospice care. Danny was concerned, if patient gets admitted to Hospice care where the care would be provided. I provided her with more information about In House hospice vs home hospice. Danny preferes in House hospice as patient does not have enough support at home. Doctor Forte joined the meeting and explained the need for further urine analysis studies in order to treat high Na level and its sources. The expectations were that with normal Na level, patient would at least get more alert and able to take PO. The idea was to, despite terminal diagnosis, provide patient with some quality of life until the . Ms. Ledezma agreed. Doctor Keerthi was contacted regarding this decision and he concurred. Code status discussed. Ms. Delgado was very clear that she wanted to respect patient's wishes stated to her verbaly, for promotion of natural . POLST introduced. DNR/DNI signed. This was shared with Nursing. Impression * Lung cancer * Hypernatremia * Lethargy caused most likely by high Na level * Intolerance of PO intake * Unable to advocate for her self * lack of family support * Close friend and POA Ms. Delgado advocates for natural * POLST signed Suggestions * Continue IV hydration, use Hypotonic IV fluids * Na control * Would insert Perera cath for more adequate urine output and skin integrity promotion * Hold off all PO meds and fluids/food * Aspiration precautions * Oral care * Humidified O2 * DNR/DNI Palliative care will continue to fallow up with this patient and her POA. Hospice care is to bee further discussed based on patient's condition and responds to therapy. Advance Care planing 50 min
--- NOTE | 2018-04-11 12:21 | CP.PCM.CON ---
History of Present Illness - History of Present Illness History of Present Illness: pt is seen and examined, full consult is dictated #[id number] 1. hypernatremia 2.hypercalcemia 3.post obstructive pneumonia effusion c/w ivf d5w iv abx Past Patient History - Past Medical History & Family History Past Medical History?: Yes - Past Social History Smoking Status: Current Some Days Smoker - CARDIAC Hx Cardiac Disorders: No - PULMONARY Hx Respiratory Disorders: Yes (lung mass) - NEUROLOGICAL Hx Neurological Disorder: No - HEENT Hx HEENT Problems: Yes (graves disease) Other/Comment: sjogrens disease lack of salvia and tears - RENAL Hx Chronic Kidney Disease: No - ENDOCRINE/METABOLIC Hx Hyperthyroidism: Yes - HEMATOLOGICAL/ONCOLOGICAL Hx Blood Disorders: No - INTEGUMENTARY Hx Dermatological Problems: No - MUSCULOSKELETAL/RHEUMATOLOGICAL Hx Falls: Yes - GASTROINTESTINAL Hx Gastrointestinal Disorders: No - GENITOURINARY/GYNECOLOGICAL Hx Genitourinary Disorders: Yes (ovarian cysts) - PSYCHIATRIC Hx Substance Use: No - SURGICAL HISTORY Hx Surgeries: Yes Other/Comment: laparoscopic ovarian cyst removal right ovary - ANESTHESIA Hx Anesthesia: Yes Hx Anesthesia Reactions: Yes (memory loss) Hx Malignant Hyperthermia: No Meds Allergies/Adverse Reactions: Allergies Allergy/AdvReac Type Severity Reaction Status Date / Time No Known Allergies Allergy Verified 04/07/18 19:38 - Medications Medications: Current Medications Acetaminophen (Tylenol 325mg Tab) 650 mg PO Q6 PRN PRN Reason: Pain, moderate (4-7) Clonazepam (Klonopin) 0.5 mg PO BID [facility] Last Admin: 04/11/18 10:23 Dose: 0.5 mg Enoxaparin Sodium (Lovenox) 40 mg SC DAILY [facility] Last Admin: 04/11/18 10:23 Dose: 40 mg Haloperidol (Haldol) 5 mg PO Q6H PRN PRN Reason: Agitation Last Admin: 04/10/18 09:53 Dose: 5 mg Dextrose (Dextrose 5% In Water 1000 Ml) 1,000 mls @ 100 mls/hr IV .Q10H [facility] Last Admin: 04/11/18 12:09 Dose: 100 mls/hr Lorazepam (Ativan) 0.5 mg PO Q6H PRN PRN Reason: Anxiety Last Admin: 04/10/18 13:20 Dose: 0.5 mg Methimazole (Tapazole) 5 mg PO DAILY [facility] Last Admin: 04/11/18 10:23 Dose: 5 mg Trazodone HCl (Desyrel) 50 mg PO HS [facility] Last Admin: 04/10/18 21:59 Dose: 50 mg Results - Vital Signs Recent Vital Signs: Last Vital Signs Temp 98.1 F 04/11/18 08:01 Pulse 100 H 04/11/18 08:01 Resp 24 04/11/18 08:01 BP 106/55 L 04/11/18 08:01 Pulse Ox 96 04/11/18 08:01 - Labs Result Diagrams: 04/11/18 06:35 04/11/18 06:35 Labs: Laboratory Results - last 24 hr 04/10/18 04/11/18 04/11/18 16:59 06:35 06:35 WBC 20.3 H RBC 3.84 Hgb 11.2 Hct 36.0 MCV 93.9 MCH 29.3 MCHC 31.2 L RDW 15.6 H Plt Count 312 MPV 6.7 L Neut % (Auto) 92.8 H Lymph % (Auto) 1.6 L [place] % (Auto) 5.4 Eos % (Auto) 0.0 Baso % (Auto) 0.2 Neut # (Auto) 18.8 H Lymph # (Auto) 0.3 L [place] # (Auto) 1.1 H Eos # (Auto) 0.0 Baso # (Auto) 0.0 Neutrophils % (Manual) 97 H Lymphocytes % (Manual) 1 L Monocytes % (Manual) 2 Platelet Estimate Normal RBC Morphology Normal Sodium 167 H* Potassium 3.8 Chloride 133 H Carbon Dioxide 33 H Anion Gap 5 L BUN 21 H Creatinine 1.0 Est GFR ( Amer) > 60 Est GFR (Non-Af Amer) 55 Random Glucose 162 H Calcium 10.9 H Total Bilirubin 0.4 AST 12 L ALT 14 Alkaline Phosphatase 123 Total Protein 6.1 L Albumin 2.9 L Globulin 3.2 Albumin/Globulin Ratio 0.9 L [place] 1.2 04/11/18 06:35 WBC RBC Hgb Hct MCV MCH MCHC RDW Plt Count MPV Neut % (Auto) Lymph % (Auto) [place] % (Auto) Eos % (Auto) Baso % (Auto) Neut # (Auto) Lymph # (Auto) [place] # (Auto) Eos # (Auto) Baso # (Auto) Neutrophils % (Manual) Lymphocytes % (Manual) Monocytes % (Manual) Platelet Estimate RBC Morphology Sodium Potassium Chloride Carbon Dioxide Anion Gap BUN Creatinine Est GFR ( Amer) Est GFR (Non-Af Amer) Random Glucose Calcium Total Bilirubin AST ALT Alkaline Phosphatase Total Protein Albumin Globulin Albumin/Globulin Ratio [place] 1.0
[2018-04-11 15:01] LABS: SQUAMOUS EPITHIAL < 1 /hpf (0-5); URINE BACTERIA RARE (<OCC); URINE BILIRUBIN NEGATIVE (NEGATIVE); URINE BLOOD 1+ (NEGATIVE); URINE CLARITY Clear (Clear); URINE COLOR Yellow (YELLOW); URINE GLUCOSE (UA) NORMAL (Normal); URINE LEUKOCYTE ESTERASE NEG Leu/uL (Negative); URINE PROTEIN NEGATIVE (NEGATIVE); URINE UROBILINOGEN NORMAL mg/dL (0.2-1.0)
[2018-04-11 15:27] VITALS: RESP 20
--- NOTE | 2018-04-11 16:00 | CP.PCM.PN ---
<Young Gillespie - Last Filed: 04/11/18 15:58> Subjective - Date & Time of Evaluation Date of Evaluation: 04/11/18 Time of Evaluation: 11:30 - Subjective Subjective: Pulmonology note for Dr. May Patient was seen and examined this morning at bedside. She was somnolent and responsive to pain only, yesterday patient would respond to her name. She is sleeping and does not appear to be agitated or combative. Repeat labs this morn ing revealed a further elevated Na+ of 167. ROS unavailable. Objective - Vital Signs/Intake and Output Vital Signs (last 24 hours): Temp Pulse Resp BP Pulse Ox 97.9 F 121 H 20 103/62 95 04/11/18 15:26 04/11/18 15:26 04/11/18 15:26 04/11/18 15:26 04/11/18 15:26 Intake and Output: 04/11/18 04/11/18 06:59 18:59 Intake Total 920 800 Output Total 100 Balance 920 700 - Medications Medications: Current Medications Acetaminophen (Tylenol 325mg Tab) 650 mg PO Q6 PRN PRN Reason: Pain, moderate (4-7) Clonazepam (Klonopin) 0.5 mg PO BID [facility] Last Admin: 04/11/18 10:23 Dose: 0.5 mg Enoxaparin Sodium (Lovenox) 40 mg SC DAILY [facility] Last Admin: 04/11/18 10:23 Dose: 40 mg Dextrose (Dextrose 5% In Water 1000 Ml) 1,000 mls @ 100 mls/hr IV .Q10H [facility] Last Admin: 04/11/18 12:09 Dose: 100 mls/hr Lorazepam (Ativan) 0.5 mg PO Q6H PRN PRN Reason: Anxiety Last Admin: 04/10/18 13:20 Dose: 0.5 mg Methimazole (Tapazole) 5 mg PO DAILY [facility] Last Admin: 04/11/18 10:23 Dose: 5 mg Trazodone HCl (Desyrel) 50 mg PO HS [facility] Last Admin: 04/10/18 21:59 Dose: 50 mg - Labs Labs: 04/11/18 06:35 04/11/18 06:35 PT 15.0 SECONDS (9.7-12.2) H 04/07/18 21:35 INR 1.4 04/07/18 21:35 APTT 30 SECONDS (21-34) 04/07/18 21:35 - Constitutional Appears: No Acute Distress, Cachectic - Head Exam Head Exam: ATRAUMATIC, NORMOCEPHALIC - Eye Exam Eye Exam: PERRL - Respiratory Exam Respiratory Exam: Decreased Breath Sounds. absent: Accessory Muscle Use, Rhonchi, Wheezes, Respiratory Distress - Cardiovascular Exam Cardiovascular Exam: Tachycardia, +S1, +S2 - GI/Abdominal Exam GI & Abdominal Exam: Soft. absent: Distended, Firm, Guarding, Rigid, Tenderness - Extremities Exam Extremities Exam: absent: Calf Tenderness, Pedal Edema - Neurological Exam Additional comments: responsive to pain only Assessment and Plan (1) Hypernatremia Assessment & Plan: Nephro consulted, Dr. Isaac Na+ increased to 167 (from 157) today Hypernatremia work up stared IV fluid switched to D5W at 100mL Morven discontinued Perera placed Status: Acute (2) Pneumonia Assessment & Plan: continue zosyn Status: Acute (3) Lung cancer Assessment & Plan: Given the prognosis of end-stage lung adenocarcinoma and the severity of her current condition, all options including conservative management and hospice care were discussed at length with the patients power of pharmacist assistant (POA). There was a meeting with palliative care today. I was decided that we will treat the patient's hypernatremia as this is thought to be a correctable cause of the patient's change in mental status. Upon correction of her hyponatremia, POA would like to place patient on hospice care for the remainder of her life. Patient made a DNI/DNR, POLST signed. Status: Acute (4) Lung infiltrate Status: Acute <Wes May S - Last Filed: 04/11/18 18:02> Objective - Vital Signs/Intake and Output Vital Signs (last 24 hours): Temp Pulse Resp BP Pulse Ox 97.9 F 121 H 20 103/62 95 04/11/18 15:26 04/11/18 15:26 04/11/18 15:26 04/11/18 15:26 04/11/18 15:26 Intake and Output: 04/11/18 04/11/18 06:59 18:59 Intake Total 920 800 Output Total 100 Balance 920 700 - Medications Medications: Current Medications Acetaminophen (Tylenol 325mg Tab) 650 mg PO Q6 PRN PRN Reason: Pain, moderate (4-7) Clonazepam (Klonopin) 0.5 mg PO BID [facility] Last Admin: 04/11/18 17:21 Dose: Not Given Enoxaparin Sodium (Lovenox) 40 mg SC DAILY [facility] Last Admin: 04/11/18 10:23 Dose: 40 mg Dextrose (Dextrose 5% In Water 1000 Ml) 1,000 mls @ 100 mls/hr IV .Q10H [facility] Last Admin: 04/11/18 12:09 Dose: 100 mls/hr Piperacillin Sod/Tazobactam Sod (Zosyn 3.375 Gm Iv Premix) 3.375 gm in 50 mls @ 100 mls/hr IVPB Q6H [facility]; Protocol Last Admin: 04/11/18 17:48 Dose: 100 mls/hr Lorazepam (Ativan) 0.5 mg PO Q6H PRN PRN Reason: Anxiety Last Admin: 04/10/18 13:20 Dose: 0.5 mg Methimazole (Tapazole) 5 mg PO DAILY [facility] Last Admin: 04/11/18 10:23 Dose: 5 mg Trazodone HCl (Desyrel) 50 mg PO HS [facility] Last Admin: 04/10/18 21:59 Dose: 50 mg - Labs Labs: 04/11/18 06:35 04/11/18 06:35 PT 15.0 SECONDS (9.7-12.2) H 04/07/18 21:35 INR 1.4 04/07/18 21:35 APTT 30 SECONDS (21-34) 04/07/18 21:35 Assessment and Plan (1) Lung infiltrate Status: Acute (2) Lung cancer Status: Acute Attending/Attestation - Attestation I have personally seen and examined this patient.: Yes I have fully participated in the care of the patient.: Yes I have reviewed all pertinent clinical information, including history, physical exam and plan: Yes Notes (Text): 04/11/18 18:01 patient seen and examined Assessment and plan as per resident note D5W at 100 mL an hour Nephrology evaluation Monitor sodium level lithium on hold
[2018-04-11] MEDS: Piperacill/Tazo 3.375gm in Dex 3.375 GM/50 ML BAG IVPB SCH ×2 (17:48→23:34)
--- NOTE | 2018-04-11 19:31 | CP.PCM.PN ---
Subjective - Date & Time of Evaluation Date of Evaluation: 04/11/18 Time of Evaluation: 19:29 - Subjective Subjective: very lethargic.barely responsive. Objective - Vital Signs/Intake and Output Vital Signs (last 24 hours): Temp Pulse Resp BP Pulse Ox 97.9 F 121 H 20 103/62 95 04/11/18 15:26 04/11/18 15:26 04/11/18 15:26 04/11/18 15:26 04/11/18 15:26 Intake and Output: 04/11/18 04/12/18 18:59 06:59 Intake Total 800 Output Total 100 Balance 700 - Medications Medications: Current Medications Acetaminophen (Tylenol 325mg Tab) 650 mg PO Q6 PRN PRN Reason: Pain, moderate (4-7) Clonazepam (Klonopin) 0.5 mg PO BID [facility] Last Admin: 04/11/18 17:21 Dose: Not Given Enoxaparin Sodium (Lovenox) 40 mg SC DAILY [facility] Last Admin: 04/11/18 10:23 Dose: 40 mg Dextrose (Dextrose 5% In Water 1000 Ml) 1,000 mls @ 100 mls/hr IV .Q10H [facility] Last Admin: 04/11/18 12:09 Dose: 100 mls/hr Piperacillin Sod/Tazobactam Sod (Zosyn 3.375 Gm Iv Premix) 3.375 gm in 50 mls @ 100 mls/hr IVPB Q6H [facility]; Protocol Last Admin: 04/11/18 17:48 Dose: 100 mls/hr Lorazepam (Ativan) 0.5 mg PO Q6H PRN PRN Reason: Anxiety Last Admin: 04/10/18 13:20 Dose: 0.5 mg Methimazole (Tapazole) 5 mg PO DAILY [facility] Last Admin: 04/11/18 10:23 Dose: 5 mg Trazodone HCl (Desyrel) 50 mg PO HS [facility] Last Admin: 04/10/18 21:59 Dose: 50 mg - Labs Labs: 04/11/18 06:35 04/11/18 06:35 PT 15.0 SECONDS (9.7-12.2) H 04/07/18 21:35 INR 1.4 04/07/18 21:35 APTT 30 SECONDS (21-34) 04/07/18 21:35 - Constitutional Appears: Cachectic, Chronically Ill - Head Exam Head Exam: NORMOCEPHALIC - Respiratory Exam Respiratory Exam: Decreased Breath Sounds - Cardiovascular Exam Cardiovascular Exam: REGULAR RHYTHM - GI/Abdominal Exam GI & Abdominal Exam: Soft - Extremities Exam Extremities Exam: absent: Pedal Edema Assessment and Plan - Assessment and Plan (Free Text) Plan: hypernatermia.seen by nephro.ct supprtive rx.iv d5.diss with senthilruthhaylie.seen by sonia jeffries
[2018-04-11] MEDS ORDERED: Morphine 4 MG/ML VIAL IVP STA (21:05)
--- NOTE | 2018-04-12 03:38 | CON ---
DATE: 04/11/2018 RENAL CONSULTATION LOCATION: The patient is located in room 359, bed B. REQUESTED BY: Amos Pendleton MD REASON FOR RENAL CONSULTATION: Hypernatremia, altered mental status, for further evaluation. HISTORY OF PRESENT ILLNESS: Mrs. Sainz is a 67-year-old very cachectic elderly female with a past medical history significant for lung CA, presented to the emergency room with decreased appetite that has been worsening for the 4 days prior to the admission, and the patient was also complaining on admission of constipation for about 3 days prior to the admission and feeling weak and frequent falls over the 1 week prior to the admission. The patient denied any fever, chills, chest pain, shortness of breath, nausea, vomiting, diarrhea, headache, or dizziness on admission. Now, the patient is very drowsy, not responding to verbal stimuli. PAST MEDICAL HISTORY: Significant for anxiety, bipolar disorder, hyperthyroidism, and lung CA. PAST SURGICAL HISTORY: No surgical history as per the EHR, unable to get any history from the patient. Chart reviewed, and history obtained from the review of the chart. ALLERGIES: NO KNOWN DRUG ALLERGIES. SOCIAL HISTORY: No alcohol. No drug abuse. FAMILY HISTORY: Unknown family history. HOME MEDICATIONS: Include temazepam, methimazole, lithium carbonate, and Ativan. CURRENT MEDICATIONS: In the hospital include as follows: Ativan 0.5 mg p.o. every 6 hours, trazodone 50 mg p.o. at bedtime, IV fluids D5W 100 mL per hour started this morning, clonazepam 0.5 mg p.o. b.i.d., Lovenox 40 mg subcu daily, methimazole 5 mg p.o. daily, Tylenol, and Zosyn. REVIEW OF SYSTEMS: Feeling weak and frequent falls and decreased appetite prior to the admission. Now, the patient has altered mental status, not responding this morning. All other review of systems are reviewed as per HPI. PHYSICAL EXAMINATION: VITAL SIGNS: As follows: Blood pressure 106/55, pulse 100, respirations about 24, temperature 98.1, and saturation 96%. Height 5 feet 4 inches and weight is 95 pounds. GENERAL: Mrs. Sainz is a 67-year-old elderly female, thin built, very cachectic, slightly tachypneic. HEENT: Pupils normal, react to light and accommodation. Conjunctivae pink. Sclerae anicteric with sunken eyes. Trachea is midline. No thyroid enlargement. LUNGS: Decreased breath sounds on the left base. Right side, normal breath sounds. Clear to auscultation. CARDIOVASCULAR SYSTEM: [place] at the fifth intercostal space and midclavicular line. S1, S2 audible. No murmur. No gallop. ABDOMEN: Scaphoid, soft. No guarding. No rigidity. No hepatosplenomegaly. CENTRAL NERVOUS SYSTEM: The patient is very lethargic, not responding to verbal stimuli. EXTREMITIES: No cyanosis, no clubbing, no edema. SKIN: Turgor is very poor. LABORATORY DATA: Include as follows: As of 04/07/2018, WBC 11.4, hemoglobin 11.5, hematocrit is 34.8, platelets 230. PT 15, PTT 30. Sodium 135, potassium 3.2, chloride 99, CO2 of 29, BUN 33, creatinine 1.2, glucose 112, calcium 10.2. Total bili 0.6, AST 18, ALT 17, alkaline phosphatase 121, total protein 6.6, albumin 3.5. As of 04/09/2018, sodium is 149. As of 04/10/2018, sodium 157, potassium 3.2, chloride 122, CO2 33, BUN 23, creatinine 0.9, and calcium is 11, total protein 6.2, and albumin is 3 with a corrected calcium 11.8, and thyroxine level is 4.69 and T3 is 0.732 and TSH 0.84 as of 04/08/2018, and lithium level as of 04/10/2018, 1.2. OTHER LABORATORY DATA: As of 04/11/2018, WBC 20.3, hemoglobin 11.2, hematocrit is 36, platelets 312. Sodium 167, potassium 3.8, chloride 133, CO2 of 33, BUN 21, creatinine 1, glucose 162, and calcium is 10.9. Total bili 0.4, AST 12, ALT 14, alkaline phosphatase 123, total protein 6.1, and albumin is 2.9 with corrected calcium about 11.7-12.1. IMAGING: CT of the chest as of 04/10/2018, impression: Increased opacity at the left hemithorax is appreciated, occupying the left lower lobe and pleural space, suggesting the interval progression of the disease, though no midline shift is appreciated at this time, postobstructive atelectasis, appears throughout the left lower lobe which is either intrinsic or extrinsic at the left main bronchus. CT of the head as of 04/07/2018, impression: Nonspecific white matter changes and generalized atrophy. ASSESSMENT: In summary, Mrs. Sainz is a 67-year-old elderly, very cachectic female with a history of lung carcinoma, anxiety, bipolar disorder, and hyperthyroidism, who was admitted with weakness and decreased appetite, constipation, and frequent falls, and with worsening serum sodium since admission with decreased p.o. intake. Sodium 135 on admission, now 167 with altered mental status. 1. 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 intake, 2. Hypercalcemia secondary to dehydration and lung cancer and lithium. 3. Bipolar disorder. 4. Hyperthyroidism. PLAN: Discontinue lithium for now, and continue IV fluids D5W at 100 mL per hour and continue to monitor BMP and rule out postobstructive pneumonia. Consider IV antibiotics. The patient is a DNR/DNI, and overall prognosis is very, very poor. If does not improve with hydration and serum calcium, we will add calcitonin or pamidronate. We will follow up with you. Thank you for allowing me to participate in your patient's care. Chepe Isaac MD
[2018-04-12] MEDS: Piperacill/Tazo 3.375gm in Dex 3.375 GM/50 ML BAG IVPB SCH ×2 (05:00→10:15)
[2018-04-12 07:46] VITALS: BP 92/56; PULSE 130; O2SAT 91
[2018-04-12 08:47] VITALS: TEMP 101
[2018-04-12] MEDS: methIMAzole 5 MG TAB PO SCH (10:16)
[2018-04-12] MEDS: Enoxaparin 40 mg Syringe SC SCH (10:17)
--- NOTE | 2018-04-12 11:26 | CP.PCM.PN ---
Subjective - Date & Time of Evaluation Date of Evaluation: 04/12/18 Time of Evaluation: 11:22 - Subjective Subjective: Patient examined in bed, lethargic, unresponsive to verbal stimuli, barely responding to deep tactile stimuli. Mouth open, oral mucousa dry, patient is a mouth breather. Neck over extended. Skin dry. D5W in IV for hydration. No new labs since yesterday. BP remains low. Objective - Vital Signs/Intake and Output Vital Signs (last 24 hours): Temp Pulse Resp BP Pulse Ox 101 F H 130 H 20 92/56 L 91 L 04/12/18 08:46 04/12/18 07:45 04/12/18 07:45 04/12/18 07:45 04/12/18 07:45 Intake and Output: 04/12/18 04/12/18 06:59 18:59 Intake Total 1550 Output Total 750 Balance 800 - Medications Medications: Current Medications Acetaminophen (Tylenol 325mg Tab) 650 mg PO Q6 PRN PRN Reason: Pain, moderate (4-7) Acetaminophen (Tylenol 650 Mg Supp) 650 mg NM Q6 PRN PRN Reason: Fever >100.4 F Last Admin: 04/12/18 08:46 Dose: 650 mg Clonazepam (Klonopin) 0.5 mg PO BID [facility] Last Admin: 04/12/18 10:15 Dose: Not Given Enoxaparin Sodium (Lovenox) 40 mg SC DAILY [facility] Last Admin: 04/12/18 10:17 Dose: 40 mg Dextrose (Dextrose 5% In Water 1000 Ml) 1,000 mls @ 100 mls/hr IV .Q10H [facility] Last Admin: 04/12/18 08:51 Dose: 100 mls/hr Piperacillin Sod/Tazobactam Sod (Zosyn 3.375 Gm Iv Premix) 3.375 gm in 50 mls @ 100 mls/hr IVPB Q6H [facility]; Protocol Last Admin: 04/12/18 10:15 Dose: 100 mls/hr Lorazepam (Ativan) 0.5 mg PO Q6H PRN PRN Reason: Anxiety Last Admin: 04/10/18 13:20 Dose: 0.5 mg Methimazole (Tapazole) 5 mg PO DAILY [facility] Last Admin: 04/12/18 10:16 Dose: Not Given Trazodone HCl (Desyrel) 50 mg PO HS [facility] Last Admin: 04/11/18 22:41 Dose: Not Given - Labs Labs: 04/11/18 06:35 04/11/18 06:35 PT 15.0 SECONDS (9.7-12.2) H 04/07/18 21:35 INR 1.4 04/07/18 21:35 APTT 30 SECONDS (21-34) 04/07/18 21:35 - Constitutional Appears: In Acute Distress, Chronically Ill - Head Exam Head Exam: ATRAUMATIC, NORMAL INSPECTION, NORMOCEPHALIC - Eye Exam Eye Exam: EOMI, Normal appearance, PERRL Pupil Exam: NORMAL ACCOMODATION, PERRL - ENT Exam ENT Exam: Mucous Membranes Dry - Neck Exam Neck Exam: Normal Inspection - Respiratory Exam Respiratory Exam: Respiratory Distress - Cardiovascular Exam Cardiovascular Exam: Tachycardia - GI/Abdominal Exam GI & Abdominal Exam: Soft, Normal Bowel Sounds - Rectal Exam Rectal Exam: Deferred - Extremities Exam Extremities Exam: Pedal Edema - Back Exam Back Exam: NORMAL INSPECTION - Neurological Exam Neurological Exam: Motor Sensory Deficit Neuro motor strength exam: Left Upper Extremity: 0, Right Upper Extremity: 0, Left Lower Extremity: 0, Right Lower Extremity: 0 - Psychiatric Exam Psychiatric exam: Flat Affect - Skin Skin Exam: Pallor Assessment and Plan - Assessment and Plan (Free Text) Assessment: Patient examined in bed, very lethargic, unresponsive. Patient is NPO. IVF for hydration. I spoke to Doctor Pendleton about patient's worsening condition. He agreed. BP 92/56, HR 130, temp 101.0, O2 Sat 91%. Hospice ordered two days ago. Spoke to music store manager who said that [facility] has been coming X 2 for the last 2 days but patient did not qualify for In house hospice. [facility] will come today again to evaluate. Impression * This patient is approaching end of her life * I do not think that any further diagnostic studies, including blood work and urine tests will benefit patient, regardless of abnormal values as of yesterday * This patient needs therapy aimed to symptoms control and promoting natural , what will cease further suffering for this patient * Patient's POA is supporting comfort measures Suggestions * Would initiate " Comfort measures", set of orders already in [facility], even before Hospice evaluate patient again. That will bring more comfort for this dying patient * Would discontinue all further diagnostic studies, including blood work * Promote natural optimizing comfort Palliative care will sign off at this time. Thank you for allowing me to assist you with care of this patient. Advance care planing 30 min
--- NOTE | 2018-04-12 11:40 | CP.PCM.PN ---
Subjective - Date & Time of Evaluation Date of Evaluation: 04/12/18 Time of Evaluation: 11:39 - Subjective Subjective: pt is seen and examined, follow up consult is dictated #[id number] Objective - Vital Signs/Intake and Output Vital Signs (last 24 hours): Temp Pulse Resp BP Pulse Ox 101 F H 130 H 20 92/56 L 91 L 04/12/18 08:46 04/12/18 07:45 04/12/18 07:45 04/12/18 07:45 04/12/18 07:45 Intake and Output: 04/12/18 04/12/18 06:59 18:59 Intake Total 1550 Output Total 750 Balance 800 - Medications Medications: Current Medications Acetaminophen (Tylenol 325mg Tab) 650 mg PO Q6 PRN PRN Reason: Pain, moderate (4-7) Acetaminophen (Tylenol 650 Mg Supp) 650 mg DC Q6 PRN PRN Reason: Fever >100.4 F Last Admin: 04/12/18 08:46 Dose: 650 mg Clonazepam (Klonopin) 0.5 mg PO BID [facility] Last Admin: 04/12/18 10:15 Dose: Not Given Enoxaparin Sodium (Lovenox) 40 mg SC DAILY [facility] Last Admin: 04/12/18 10:17 Dose: 40 mg Dextrose (Dextrose 5% In Water 1000 Ml) 1,000 mls @ 100 mls/hr IV .Q10H [facility] Last Admin: 04/12/18 08:51 Dose: 100 mls/hr Piperacillin Sod/Tazobactam Sod (Zosyn 3.375 Gm Iv Premix) 3.375 gm in 50 mls @ 100 mls/hr IVPB Q6H [facility]; Protocol Last Admin: 04/12/18 10:15 Dose: 100 mls/hr Lorazepam (Ativan) 0.5 mg PO Q6H PRN PRN Reason: Anxiety Last Admin: 04/10/18 13:20 Dose: 0.5 mg Methimazole (Tapazole) 5 mg PO DAILY [facility] Last Admin: 04/12/18 10:16 Dose: Not Given Trazodone HCl (Desyrel) 50 mg PO HS [facility] Last Admin: 04/11/18 22:41 Dose: Not Given - Labs Labs: 04/11/18 06:35 04/11/18 06:35 PT 15.0 SECONDS (9.7-12.2) H 04/07/18 21:35 INR 1.4 04/07/18 21:35 APTT 30 SECONDS (21-34) 04/07/18 21:35
[2018-04-12 11:54] LABS: BASO % 0.1 % (0.0-2.0); HEMOGLOBIN 10.5 g/dL (11.0-16.0); LYMPH # 0.5 K/uL (1.0-4.3); LYMPH % 2.5 % (20.0-40.0); MEAN CELL VOLUME 95.7 fL (81.0-99.0); MEAN CORPUSCULAR HEMOGLOBIN 29.6 pg (27.0-31.0); MEAN CORPUSCULAR HGB CONC 30.9 g/dL (33.0-37.0); MEAN PLATELET VOLUME 7.1 fL (7.2-11.7); MONO # 0.9 K/uL (0.0-0.8); MONO % 4.4 % (0.0-10.0); NEUT # 19.6 K/uL (1.8-7.0); PLATELET COUNT 281 K/uL (130-400); RBC 3.57 Mil/uL (3.80-5.20); RED CELL DISTRIBUTION WIDTH 15.7 % (11.5-14.5)
--- NOTE | 2018-04-12 12:03 | CP.PCM.PN ---
Subjective - Date & Time of Evaluation Date of Evaluation: 04/12/18 Time of Evaluation: 11:59 - Subjective Subjective: lethargic,unresponsive. Objective - Vital Signs/Intake and Output Vital Signs (last 24 hours): Temp Pulse Resp BP Pulse Ox 101 F H 130 H 20 92/56 L 91 L 04/12/18 08:46 04/12/18 07:45 04/12/18 07:45 04/12/18 07:45 04/12/18 07:45 Intake and Output: 04/12/18 04/12/18 06:59 18:59 Intake Total 1550 Output Total 750 Balance 800 - Medications Medications: Current Medications Acetaminophen (Tylenol 325mg Tab) 650 mg PO Q6 PRN PRN Reason: Pain, moderate (4-7) Acetaminophen (Tylenol 650 Mg Supp) 650 mg SC Q6 PRN PRN Reason: Fever >100.4 F Last Admin: 04/12/18 08:46 Dose: 650 mg Clonazepam (Klonopin) 0.5 mg PO BID [facility] Last Admin: 04/12/18 10:15 Dose: Not Given Enoxaparin Sodium (Lovenox) 40 mg SC DAILY [facility] Last Admin: 04/12/18 10:17 Dose: 40 mg Dextrose (Dextrose 5% In Water 1000 Ml) 1,000 mls @ 100 mls/hr IV .Q10H [facility] Last Admin: 04/12/18 08:51 Dose: 100 mls/hr Piperacillin Sod/Tazobactam Sod (Zosyn 3.375 Gm Iv Premix) 3.375 gm in 50 mls @ 100 mls/hr IVPB Q6H [facility]; Protocol Last Admin: 04/12/18 10:15 Dose: 100 mls/hr Lorazepam (Ativan) 0.5 mg PO Q6H PRN PRN Reason: Anxiety Last Admin: 04/10/18 13:20 Dose: 0.5 mg Methimazole (Tapazole) 5 mg PO DAILY [facility] Last Admin: 04/12/18 10:16 Dose: Not Given Trazodone HCl (Desyrel) 50 mg PO HS [facility] Last Admin: 04/11/18 22:41 Dose: Not Given - Labs Labs: 04/12/18 11:32 04/11/18 06:35 PT 15.0 SECONDS (9.7-12.2) H 04/07/18 21:35 INR 1.4 04/07/18 21:35 APTT 30 SECONDS (21-34) 04/07/18 21:35 - Constitutional Appears: In Acute Distress, Chronically Ill - Head Exam Head Exam: NORMOCEPHALIC - Respiratory Exam Respiratory Exam: Decreased Breath Sounds - Cardiovascular Exam Cardiovascular Exam: Tachycardia - GI/Abdominal Exam GI & Abdominal Exam: Soft - Extremities Exam Extremities Exam: absent: Pedal Edema Assessment and Plan - Assessment and Plan (Free Text) Plan: fever,dehydration,ca.will d/c po meds,can not swallow.d/c iv antibiotics.h ospice.iv morphine.
[2018-04-12] MEDS ORDERED: Morphine 4 MG/ML VIAL IV ONE (12:05)
[2018-04-12 12:24] LABS: LYMPHOCYTE 3 % (20-40); MONOCYTE 2 % (0-10); NEUTROPHIL 95 % (50-75); TOTAL CELLS COUNTED 100
[2018-04-12 12:25] LABS: PLATELET ESTIMATE NORMAL (NORMAL)
[2018-04-12 12:26] LABS: ANISOCYTOSIS SLIGHT; HYPOCHROMIC SLIGHT
[2018-04-12 13:30] LABS: ALB/GLOB RATIO 0.8 (1.0-2.1); ALBUMIN 2.7 g/dL (3.5-5.0); CALCIUM 9.5 mg/dl (8.6-10.4)
--- NOTE | 2018-04-13 01:00 | PN ---
DATE: 04/12/2018 LOCATION: The patient is located in room 359, bed B. REQUESTED BY: Amos Pendleton MD REASON FOR FOLLOWUP: Hypernatremia, for further evaluation. SUBJECTIVE: Mrs. Sainz is a 67-year-old elderly very cachectic female with a history of lung cancer, diagnosed about 2 years ago, who was admitted on 04/07/2018 with chief complaints of decreased appetite, also frequent falls, constipation for 3-4 days prior to the admission. The patient was found to have a worsening mental status, also worsening serum sodium since admission, also worsening WBC with possible postobstructive pneumonia, on IV antibiotics started yesterday and also low-grade fever on admission of 100.1. The patient is on nasal cannula and the patient is not responding to verbal stimuli and in moderate respiratory distress. The patient is DNR. PHYSICAL EXAMINATION: VITAL SIGNS: Blood pressure 92/56, pulse 130, respiration 20, temperature 101, and saturation 91%. Height 5 feet 4 inches, weight is 95 pounds. GENERAL: Mrs. Sainz is a 67-year-old very cachectic female, not responding to verbal stimuli. HEENT: Pupils normal, reactive to light. Conjunctivae slightly pale. Sclera anicteric. Tongue is dry. LUNGS: Decreased breath sounds on the left side and normal breath sounds on the right. CARDIOVASCULAR SYSTEM: S1, S2 audible. No murmur or gallop. ABDOMEN: Scaphoid, soft, nontender. Bowel sounds present. No hepatosplenomegaly. CENTRAL NERVOUS SYSTEM: The patient is very lethargic, not responding to verbal stimuli. EXTREMITIES: No cyanosis, no clubbing, no edema. SKIN: Turgor is very poor. CURRENT MEDICATIONS: Include Tylenol p.r.n. every 6 hours, Klonopin 0.5 mg p.o. b.i.d., Lovenox 40 mg subcu daily, IV fluids D5W at 100 mL/hour, Zosyn 3.375 g every 6 hours, Ativan, Tapazole, and trazodone. LABORATORY DATA: Include as follows: WBC 21, hemoglobin 10.5, hematocrit is 34.1, platelets 281. Sodium 161, potassium 4.6, chloride 127, CO2 of 30, BUN 53, creatinine 2.4, glucose 359, calcium 9.5, phosphorus 4.5, magnesium 1.9. Total bilirubin 0.5, AST 12, ALT 18, alkaline phosphatase 104, total protein 5.9, albumin is 2.7. Urinalysis as of 04/11/2018, yellow, clear, pH 5, specific gravity 1.008, protein negative, glucose negative, ketones negative, blood 1+, nitrites negative, bilirubin negative, urobilinogen normal, leukocyte esterase negative. ASSESSMENT: In summary, Mrs. Sainz is a 67-year-old elderly very thin-built, cachectic female with a history of lung cancer diagnosed about 2 years ago, refused any treatment, bipolar disorder, and hyperthyroidism, was admitted with constipation, weakness, recurrent falls and decreased appetite for 3-4 days prior to the admission. 1. Hypernatremia secondary to decreased p.o. intake, cannot rule out nephrogenic diabetes insipidus. 2. Pneumonia. 3. Lung cancer. 4. Acute renal failure now. PLAN: The patient's next of kin is at bedside, does not want anymore further testing, and hospice team is also at bedside for evaluation. Prognosis is very, very poor. Thank you for allowing me to participate in your patient's care. Chepe Isaac MD
--- NOTE | 2018-04-21 06:10 | DS ---
EXPIRATION SUMMARY The patient had a history of lung cancer. Admitted with pneumonia. The patient was seen by Dr. May. Also, she was seen by nephrology consult and Dr. Isaac. She had hypernatremia. Conservative treatment was done. The patient was finally transferred to hospice service. Subsequently, she on 04/12/2017. FINAL DIAGNOSES: Pneumonia, lung caner, hyperthyroidism. Amos Pendleton MD
== END 2018-04-12 14:49 | disposition hospice, inpatient (51) | DRG 194 ==
LOC: C.ER 18:39 → C.3T 22:29
PROVIDERS: ADMIT Internal Medicine Cardiovascular Disease; ATTEND Internal Medicine Cardiovascular Disease
DX: J18.9 Pneumonia, unspecified organism (principal); E87.0 Hyperosmolality and hypernatremia; C34.90 Malignant neoplasm of unspecified part of unspecified bronchus or lung; N25.1 Nephrogenic diabetes insipidus; N17.9 Acute kidney failure, unspecified; R64 Cachexia; Z68.1 Body mass index [BMI] 19.9 or less, adult; J98.11 Atelectasis; E87.1 Hypo-osmolality and hyponatremia; E86.0 Dehydration; F17.210 Nicotine dependence, cigarettes, uncomplicated; E05.90 Thyrotoxicosis, unspecified without thyrotoxic crisis or storm; F31.9 Bipolar disorder, unspecified; Z51.5 Encounter for palliative care; Z66 Do not resuscitate; R29.6 Repeated falls; M35.00 Sjogren syndrome, unspecified; E83.52 Hypercalcemia

== ENCOUNTER 2018-04-12 13:51 | Inpatient (IN) | payer OTHER ==
[2018-04-12 15:24] VITALS: BMI 16.2
[2018-04-12] MEDS ORDERED: Morphine Sulfate 250 MG in Dextrose 5% In Water 240 ML IV PRN (15:44)
[2018-04-12 17:09] VITALS: BP 37/23; PULSE 111; RESP 12; TEMP 102.3; O2SAT 90
--- NOTE | 2018-04-12 17:41 | CP.PCM.PRO ---
Pronouncement of Note - Clinical Findings Physical Exam: No Response Verbal/Painful Stimuli, Absent Peripheral Puls es{Carotid & Femoral}, Absent Heart & Breath Sounds, No Pupillary Light Reflex, No Corneal Reflex, Pupils Fixed & Dilated, Absence of Vital Signs - Pronouncement Time Time of Pronouncement of : 17:29 - Notifications Pronouncement Notifications: Family Notified Patrol Lady Notified: No - Autopsy Autopsy Requested: No - [place] [id number]
--- NOTE | 2018-04-21 03:26 | DS ---
EXPIRATION SUMMARY HOSPITAL COURSE: The patient was transferred to hospice service on 04/11/2018. The patient on 04/12/2018. She had a metastatic lung cancer, pneumonia, and hyperthyroidism. Conservative treatment was given. IV fluids were given. Nephrology followup with Dr. Isaac was given for hyponatremia. Dextrose was given. The patient finally . Amos Pendleton MD
== END 2018-04-12 20:00 | DRG 951 ==
LOC: C.3T 13:51
PROVIDERS: ADMIT Internal Medicine Cardiovascular Disease; ATTEND Internal Medicine Cardiovascular Disease
DX: Z51.5 Encounter for palliative care (principal); J18.9 Pneumonia, unspecified organism; C34.90 Malignant neoplasm of unspecified part of unspecified bronchus or lung; E87.1 Hypo-osmolality and hyponatremia; E05.90 Thyrotoxicosis, unspecified without thyrotoxic crisis or storm; Z66 Do not resuscitate